=== PATIENT | female | born 1995 | race Caucasian/White ===

== ENCOUNTER 2021-03-21 16:25 | Inpatient (IN) | payer MEDICAID, OTHER ==
[~2021-03-21] VITALS: Ht 165.1 cm; Wt 100.0 kg
[2021-03-21] MEDS ORDERED: ONDANSETRON HCL 4MG/2ML INJ IV STA ×2 (17:09→22:14)
[2021-03-21] MEDS ORDERED: MORPHINE SULFATE 4 MG/ML CPJ (NOT FOR IM USE) IV STA ×2 (17:09→22:14)
[2021-03-21] MEDS ORDERED: SODIUM CHLORIDE 0.9% 1,000 ML IV ONE (17:15)
[2021-03-21 17:20] LABS: BASOPHILS % 0.8 % (0.0-2.0); EOSINOPHILS % 0.8 % (0.0-5.0); HEMATOCRIT. 34.5 % (36.0-48.0); HEMOGLOBIN. 10.9 g/dL (12.0-16.0); LYMPHOCYTES % 25.9 % (20.0-50.0); MEAN CORPUSCULAR HEMOGLOBIN 24.2 pg (28.0-32.0); MEAN CORPUSCULAR VOLUME 76.9 fL (81.0-99.0); MEAN PLATELET VOLUME 10.3 fl (7.4-10.4); MONOCYTES % 5.7 % (2.0-8.0); NEUTROPHILS % 66.8 % (40.0-76.0); PLATELET 333 x1000/uL (130-400); RED BLOOD CELL COUNT 4.49 mill/uL (4.2-5.4); RED CELL DISTRIBUTION WIDTH 14.3 % (11.6-14.6)
[2021-03-21 17:27] LABS: CHLORIDE 104 mEq/L (98-107)
[2021-03-21 17:33] LABS: HCG SCREEN POSITIVE
[2021-03-21] MEDS ORDERED: CEFAZOLIN 1000MG PREMIX 50 ML IV ONE (20:00)
[2021-03-21 21:03] LABS: HEMATOCRIT 33.5 % (36.0-48.0); HEMOGLOBIN 10.7 g/dL (12.0-16.0); MEAN CORPUSCULAR VOLUME 75.5 fL (81.0-99.0); PLATELET 303 x1000/uL (130-400); RED BLOOD CELL COUNT 4.44 mill/uL (4.2-5.4); RED CELL DISTRIBUTION WIDTH 14.3 % (11.6-14.6)
[2021-03-21] MEDS ORDERED: ONDANSETRON HCL 4MG/2ML INJ IV NR (22:20)
[2021-03-21] MEDS ORDERED: PROPOFOL 200MG/20ML VIAL IV ONE (22:24)
[2021-03-21] MEDS ORDERED: FENTANYL CITRATE/PF 50MCG/ML 2ML VIAL ONE ×2 (22:25→23:39)
[2021-03-21] MEDS ORDERED: SUCCINYLCHOLINE CHLORIDE 200MG/10ML IV ONE (22:25)
[2021-03-21] MEDS ORDERED: MIDAZOLAM HCL 2 MG/2 ML VIAL ONE (22:25)
[2021-03-21] MEDS ORDERED: ROCURONIUM BROMIDE 10MG/ML VIAL 5ML IV ONE (22:25)
[2021-03-21] MEDS ORDERED: DEXAMETHASONE 4MG/ML 1ML VIAL ONE (22:26)
[2021-03-21] MEDS ORDERED: ONDANSETRON HCL 4MG/2ML INJ ONE (22:26)
[2021-03-21] MEDS ORDERED: LIDOCAINE HCL 1% 10 MG/ML 10ML VIAL ONE (22:26)
[2021-03-21] MEDS ORDERED: PHENYLEPHRINE HCL 10 MG/ML 1ML (IV VIAL) IV ONE (22:29)
[2021-03-21] MEDS ORDERED: MORPHINE SULFATE 4 MG/ML CPJ (NOT FOR IM USE) IV NR (22:30)
[2021-03-21] MEDS ORDERED: ONDANSETRON HCL 4MG/2ML INJ IV PRN (23:00)
[2021-03-21] MEDS ORDERED: NALOXONE HCL 0.4 MG/ML 1ML VIAL IV PRN (23:30)
[2021-03-21] MEDS ORDERED: NEOSTIGMINE METHYLSULFATE 1MG/ML 10 ML VIAL ONE (23:39)
[2021-03-21] MEDS ORDERED: GLYCOPYRROLATE 0.2 MG/ML 2ML VIAL ONE (23:39)
[2021-03-21] MEDS ORDERED: KETOROLAC 30MG/ML VIAL ONE (23:54)
[2021-03-22] VITALS (7 sets, daily range): BP systolic 120–147; BP diastolic 62–92
[2021-03-22] MEDS ORDERED: GLYCOPYRROLATE 0.2 MG/ML 2ML VIAL ONE (00:24)
[2021-03-22] MEDS ORDERED: METOCLOPRAMIDE HCL 10MG/2ML VIAL ONE (00:24)
[2021-03-22] MEDS: HYDROMORPHONE HCL/PF 2MG/ML CPJ IV PRN ×4 (01:17→15:43)
[2021-03-22] MEDS ORDERED: ONDANSETRON HCL 4MG/2ML INJ IV PRN (02:30)
[2021-03-22] MEDS ORDERED: MORPHINE SULFATE 2 MG/ML CPJ (NOT FOR IM USE) IV PRN (02:30)
[2021-03-22] MEDS: IBUPROFEN 800MG TABLET PO PRN (18:38)
[2021-03-22] MEDS ORDERED: NALOXONE HCL 0.4MG/ML VIAL IV PRN (18:45)
[2021-03-23] VITALS (12 sets, daily range): BP systolic 98–115; BP diastolic 47–65
[2021-03-23] MEDS: SIMETHICONE 80MG TABLET CHEW PO PRN ×3 (03:21→23:02)
[2021-03-23] MEDS: IBUPROFEN 800MG TABLET PO PRN (07:06)
[2021-03-23 07:55] LABS: BASOPHILS % 0.4 % (0.0-2.0); EOSINOPHILS % 0.4 % (0.0-5.0); LYMPHOCYTES % 30.8 % (20.0-50.0); MEAN CORPUSCULAR HEMOGLOBIN 24.7 pg (28.0-32.0); MEAN CORPUSCULAR VOLUME 75.5 fL (81.0-99.0); MEAN PLATELET VOLUME 10.3 fl (7.4-10.4); MONOCYTES % 9.2 % (2.0-8.0); NEUTROPHILS % 59.2 % (40.0-76.0); PLATELET 204 x1000/uL (130-400); RED BLOOD CELL COUNT 2.54 mill/uL (4.2-5.4); RED CELL DISTRIBUTION WIDTH 14.5 % (11.6-14.6)
[2021-03-23] MEDS ORDERED: DIPHENHYDRAMINE 25MG CAPSULE PO PRN (08:00)
[2021-03-23] MEDS ORDERED: POTASSIUM CHLORIDE 20MEQ TABLET SR PO SCH (08:00)
[2021-03-23 08:06] LABS: HEMATOCRIT. 19.2 % (36.0-48.0); HEMOGLOBIN. 6.3 g/dL (12.0-16.0)
[2021-03-23] MEDS: HYDROCODONE/ACETAMINOPHEN 5/325MG TABLET PO PRN ×2 (12:16→19:55)
[2021-03-23 18:00] LABS: HEMATOCRIT 25.5 % (36.0-48.0); HEMOGLOBIN 8.7 g/dL (12.0-16.0)
[2021-03-24] VITALS: BP 109/55
[2021-03-24 04:00] VITALS: BP 101/62
[2021-03-24] MEDS: HYDROCODONE/ACETAMINOPHEN 5/325MG TABLET PO PRN (04:15)
[2021-03-24 08:00] VITALS: BP 108/56
[2021-03-24] MEDS ORDERED: IBUP-2029 MT (09:07)
[2021-03-24 12:00] VITALS: BP 116/66
[2021-03-24 12:36] VITALS: BP 116/66
== END 2021-03-24 14:25 | disposition home or self-care (01) | DRG 547 ==
LOC: ER 16:25 → EDBEDREQTM 20:00 → EDBEDREQ 20:00 → ENRESERV 21:27 → CANBEDREQ 03-22 02:16 → 7EST 03-22 02:44
PROVIDERS: ADMIT Obstetrics & Gynecology; ATTEND Obstetrics & Gynecology
PROC: 0UB60ZZ Excision of Left Fallopian Tube, Open Approach (ICD-10-PCS; principal; 2021-03-22)
PROC: 30233N1 Transfusion of Nonautologous Red Blood Cells into Peripheral Vein, Percutaneous Approach (ICD-10-PCS; 2021-03-23)
DX: O00.90 Unspecified ectopic pregnancy without intrauterine pregnancy (principal); K66.1 Hemoperitoneum; E87.6 Hypokalemia; K74.60 Unspecified cirrhosis of liver; O99.280 Endocrine, nutritional and metabolic diseases complicating pregnancy, unspecified trimester; Z20.822 Contact with and (suspected) exposure to COVID-19; O99.019 Anemia complicating pregnancy, unspecified trimester; D62 Acute posthemorrhagic anemia; O26.899 Other specified pregnancy related conditions, unspecified trimester; Z3A.00 Weeks of gestation of pregnancy not specified
CPT/HCPCS: 36415; 70551; 71045; 74181; 76705; 76801; 80053; 84132; 84484; 84702; 84703; 85014; 85018; 85025; 85027; 86850; 86900; 86920; 87426; 88302; 93005; 99291; C1893; J0330; J0690; J1100; J1170; J1885; J2250; J2270; J2370; J2405; J2704; J2710; J2765; J3010; J3490; J7030; J7040; P9016; Q0163

== ENCOUNTER 2025-03-09 14:02 | Emergency (ER) | payer SELFPAY ==
[~2025-03-09] VITALS: Ht 167.6 cm; Wt 100.0 kg
[~2025-03-09 14:02] MED LIST: IBUP-1455 MT
[2025-03-09 14:15] VITALS: O2SAT 99
[2025-03-09 15:14] LABS: BASOPHILS % 0.9 % (0.0-2.0); EOSINOPHILS % 1.0 % (0.0-5.0); HEMATOCRIT. 37.7 % (36.0-48.0); HEMOGLOBIN. 12.0 g/dL (12.0-16.0); LYMPHOCYTES % 33.4 % (20.0-50.0); MEAN PLATELET VOLUME 10.1 fl (7.4-10.4); MONOCYTES % 13.2 % (2.0-8.0); NEUTROPHILS % 51.5 % (40.0-76.0); PLATELET 249 x1000/uL (130-400); RED BLOOD CELL COUNT 5.09 mill/uL (4.2-5.4); RED CELL DISTRIBUTION WIDTH 16.5 % (11.6-14.6)
[2025-03-09 15:33] LABS: CREATININE 0.6 mg/dL (0.6-1.0); UREA NITROGEN BLOOD 7 mg/dL (9-23)
[2025-03-09 16:07] LABS: CLARITY URINE CLOUDY (CLEAR); COLOR URINE YELLOW (YELLOW); GLUCOSE URINE NEGATIVE (NEGATIVE); KETONES URINE TRACE (NEGATIVE); LEUKOCYTE ESTERASE URINE TRACE (NEGATIVE); NITRITE URINE NEGATIVE (NEGATIVE); OCCULT BLOOD URINE NEGATIVE (NEGATIVE); PH URINE 6.0 (4.5-8.0); PROTEIN URINE TRACE (NEGATIVE); SPECIFIC GRAVITY URINE 1.029 (1.005-1.030); UROBILINOGEN URINE 1.0 E.U./dL (0.2-1.0)
[2025-03-09 16:09] LABS: HCG SCREEN NEGATIVE
[2025-03-09] MEDS: KETOROLAC 30MG/ML VIAL IM NR (16:15)
[2025-03-09 16:46] LABS: RBC URINE NONE SEEN /hpf (0-2)
[2025-03-09 16:47] LABS: BACTERIA URINE 1+; SQUAMOUS EPITHELIAL CELL URINE 2+ /lpf (RARE/1+)
[2025-03-09] MEDS ORDERED: CEPH500C2 MT (18:46)
[2025-03-09 19:15] VITALS: BP 140/95; PULSE 101; RESP 16; TEMP 36.9; O2SAT 99
== END 2025-03-09 19:16 | disposition home or self-care (01) ==
LOC: ER 14:02
DX: N39.0 Urinary tract infection, site not specified (principal); D25.1 Intramural leiomyoma of uterus; F12.90 Cannabis use, unspecified, uncomplicated
CPT/HCPCS: 99284; 76830; 76856; 80048; 81003; 81025; 84703; 85025; 36415; J1885